=== PATIENT | female | born 1970 | race Caucasian/White ===

== ENCOUNTER 2024-04-27 19:34 | Emergency (ER) | payer BC ==
[2024-04-27] MEDS ORDERED: ONDANSETRON 4 MG/2 ML VIAL ONE (20:15)
[2024-04-27] MEDS ORDERED: MORPHINE 4 MG/ML SYR ONE (20:16)
--- NOTE | 2024-04-27 21:38 | RAD REPORT ---
EXAMINATION: XR Hip Right 2 View CLINICAL INDICATION: Female, 54 years old. [facility] MAIN PAIN Bed Name: 18 TECHNIQUE: 2 view radiograph of the right hip were obtained. COMPARISON: No prior exam. FINDINGS: Mildly displaced fracture along the base of the right femoral neck or intertrochanteric juan e. Displaced fracture component involving the base of the lesser trochanter. No displacement. Normal alignment. No evidence of arthropathy or other focal bone lesion. Soft tissues are unremarkabl e. IMPRESSION: Right femoral neck fracture as above.
--- NOTE | 2024-04-27 21:39 | RAD REPORT ---
EXAM: XR Wrist Right 3 View HISTORY: [facility] MAIN PAIN Bed Name: 18 COMPARISON: None TECHNIQUE: 3 views of the left wrist. FINDINGS: No evidence of acute fracture or dislocation. Joint alignment is maintained. No soft tissue swelling is seen. Mild degenerative changes at the thumb base. IMPRESSION: No evidence of acute osseous abnormality.
--- NOTE | 2024-04-27 22:53 | EDPHYS ---
Physician Documentation [facility] Name: Noa Hernandez Age: 54 yrs Sex: Female : 1970 Arrival Date: 04/27/2024 Time: 19:34 Bed 18 Private MD: ED Physician Gonzalo Harmon HPI: 04/27 22:54 This 54 yrs old Female presents to ER via EMS with complaints of Hip Injury, Wrist rt Injury. 22:54 Patient presents to the ED with mechanical fall. The patient was sitting on a rolling rt chair when it fell out from under her causing her to land on her right side. She denies head trauma. States that she has swelling to the right wrist and pain to the right hip. She denies other acute complaints at this time, symptoms are moderate in severity, aching nature, nonradiating, no other aggravating alleviating factors.. 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 - Infectious Disease History:: Denies. - Social history:: Smoking status: Patient denies any tobacco usage or history of. - Family history:: not pertinent. ROS: 22:54 Constitutional: Negative for fever, chills, and weight loss, Cardiovascular: Negative rt for chest pain, palpitations, and edema, Respiratory: Negative for shortness of breath, cough, wheezing, and pleuritic chest pain, Abdomen/GI: Negative for abdominal pain, nausea, vomiting, diarrhea, and constipation, Skin: Negative for injury, rash, and discoloration, Neuro: Negative for headache, weakness, numbness, tingling, and seizure, 22:54 MS/extremity: Positive for injury or acute deformity, pain, Exam: 22:54 Constitutional: This is a well developed, well nourished patient who is awake, alert, rt and in no acute distress. Head/Face: Normocephalic, atraumatic. Chest/axilla: Normal chest wall appearance and motion. Nontender with no deformity. No lesions are appreciated. Cardiovascular: Regular rate and rhythm with a normal S1 and S2. No gallops, murmurs, or rubs. Normal PMI, no JVD. No pulse deficits. Respiratory: Lungs have equal breath sounds bilaterally, clear to auscultation and percussion. No rales, rhonchi or wheezes noted. No increased work of breathing, no retractions or nasal flaring. Abdomen/GI: Soft, non-tender, with normal bowel sounds. No distension or tympany. No guarding or rebound. No evidence of tenderness throughout. Skin: Warm, dry with normal turgor. Normal color with no rashes, no lesions, and no evidence of cellulitis. 22:54 Musculoskeletal/extremity: Minimal tenderness to the right wrist, swelling noted, full range of motion, pulses, motor, sensation intact with tenderness to the right hip, no other focal areas of tenderness on the right lower extremity, pulses, motor, sensation are intact. 23:03 ECG was reviewed by the Attending Physician. rt Vital Signs: 19:05 BP 142 / 88; Pulse 89; Resp 18; Temp 98(O); Pulse Ox 99% on R/A; rg5 19:37 BP 142 / 88; Pulse 81; Resp 16; Temp 97.9(O); Pulse Ox 100% on R/A; Weight 109.77 kg; iw Height 5 ft. 4 in. ; Pain 8/10; 20:30 BP 106 / 65; Pulse 89; Resp 17; Pulse Ox 99% on R/A; rg5 21:30 BP 99 / 62; Pulse 91; Resp 17; Pulse Ox 100% ; rg5 22:25 BP 107 / 88; Pulse 89; Resp 96; Temp 98(O); Pulse Ox 99% on R/A; rg5 23:32 BP 99 / 64; Pulse 97; Resp 17; Pulse Ox 99% on R/A; rg5 04/28 00:30 BP 109 / 70; Pulse 95; Resp 17; Temp 98(O); Pulse Ox 97% on R/A; Pain 5/10; rg5 04/27 19:37 Body Mass Index 41.54 (109.77 kg, 162.56 cm) iw 19:37 Pain Scale: Adult iw 04/28 00:30 Pain Scale: Adult rg5 Tyshawn Coma Score: 04/27 19:35 Eye Response: spontaneous(4). Motor Response: obeys commands(6). Verbal Response: rg5 oriented(5). Total: 15. MDM: 19:36 Medical Screening Exam initiated rt 22:54 Differential diagnosis: hip fracture, intertrochanteric fracture, femoral neck rt fracture. Data reviewed: vital signs, nurses notes, radiologic studies. Consideration of Admission/Observation Escalation of care including admission/observation considered. Patient requires transfer due to lack of orthopedic services on-call. Patient's physicians are at [facility], she request transfer to [facility].. I considered the following discharge prescriptions or medication management in the emergency department Medications were administered in the Emergency Department. See MAR. Independent interpretation of the following test(s) in the Emergency Department X-Ray: My interpretation is Femoral neck fracture syndrome interpretation of x-ray images. Test considered but Not performed: CT: No head trauma, CT scan of the head not decayed indicated. Care significantly affected by the following chronic conditions: Rheumatoid arthritis. Counseling: I had a detailed discussion with the patient and/or guardian regarding the historical points, exam findings, and any diagnostic results supporting the discharge/admit diagnosis, radiology results, the need to transfer to another facility. Response to treatment: There is no appreciated change of the patient's symptoms at this time. 04/27 22:30 Order name: CBC with Diff rt 04/27 22:30 Order name: CMP; Complete Time: 23:23 rt 04/28 00:56 Order name: CBC Smear Scan EDMS 04/27 19:42 Order name: Wrist Right 3 View XRAY; Complete Time: 21:47 rt 04/27 19:42 Order name: Hip Right 2 View XRAY; Complete Time: 21:47 rt 04/27 22:31 Order name: EKG; Complete Time: 22:31 rt 04/27 22:31 Order name: EKG - Nurse/Tech; Complete Time: 22:58 rt EC:03 Rate is 94 beats/min. Rhythm is regular, Normal Sinus Rhythm with No ectopy. QRS [place] rt is Normal. DE interval is normal. QRS interval is normal. QT interval is normal. No Q waves. No ST changes noted. Interpreted by me. Administered Medications: 20:17 Drug: morphine IVP or IV 4 mg IVP once over 4 mins Route: IVP; Infused Over: 4 mins; rg5 Site: left hand; 22:27 Follow up: Response: No adverse reaction; Pain is decreased rg5 20:17 Drug: Ondansetron IVP 4 mg IVP once; over 2 minutes Route: IVP; Site: left hand; rg5 22:27 Follow up: Response: No adverse reaction rg5 04/28 00:48 Drug: morphine IVP or IV 4 mg IVP once over 4 mins Route: IVP; Infused Over: 4 mins; rg5 Site: left hand; 00:55 Follow up: Response: No adverse reaction rg5 Disposition Summary: 04/27/24 22:52 Transfer Ordered Notes: Transfer Location: [facility] rt Reason: Specialty rt Condition: Stable rt Problem: new rt Symptoms: are unchanged rt Accepting Physician: (04/28/24 00:59) rg5 Diagnosis - Mechanical fall rt - Right femoral neck fracture rt Forms: - Medication Reconciliation Form rt - SBAR form rt Signatures: Dispatcher [employer] Bisi Land, CHRISTOPHE SAEED iw Gonzalo Harmon MD MD rt Arcenio Bone RN RN rg5 Corrections: (The following items were deleted from the chart) 00:59 04/27 22:52 rt rg5
--- NOTE | 2024-04-27 22:53 | ER ---
Nurse's Notes [facility] Name: Noa Hernandez Age: 54 yrs Sex: Female : 1970 Arrival Date: 04/27/2024 Time: 19:34 Bed 18 Private MD: Diagnosis: Mechanical fall;Right femoral neck fracture Presentation: 04/27 19:37 Chief complaint: EMS states: fell off rolling chair, fell onto right side, c/o right iw hip pain and swelling, pain and swelling to right wrist. Coronavirus screen: At this time, the client does not indicate any symptoms associated with coronavirus-19. Ebola Screen: No symptoms or risks identified at this time. Initial Sepsis Screen: Does the patient meet any 2 criteria? No. Patient's initial sepsis screen is negative. Does the patient have a suspected source of infection? No. Patient's initial sepsis screen is negative. Risk Assessment: Do you want to hurt yourself or someone else? Patient reports no desire to harm self or others. Onset of symptoms was April 27, 2024. Care prior to arrival: Medication(s) given: zofran 4 mg, ketamine 22 mg IVP IV initiated. 22 GA, in the left hand. 19:37 Method Of Arrival: EMS: [facility] iw 19:37 Acuity: OTILIO 3 iw Triage Assessment: 19:40 General: Appears uncomfortable, Behavior is calm, cooperative. Pain:. 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 - Infectious Disease History:: Denies. - Social history:: Smoking status: Patient denies any tobacco usage or history of. - Family history:: not pertinent. Screenin:35 [facility] ED Fall Risk Assessment (Adult) History of falling in the last 3 months, rg5 including since admission No falls in past 3 months (0 pts) Confusion or Disorientation No (0 pts) Intoxicated or Sedated No (0 pts) Impaired Gait Yes (1 pt) Mobility Assist Device Used Yes (1 pt) Altered Elimination No (0 pt) Score/Fall Risk Level 0 - 2 = Low Risk Oriented to surroundings, Maintained a safe environment, Hourly rounding (assess needs \T\ fall precautionary measures) done. Abuse screen: Denies threats or abuse. Nutritional screening: No deficits noted. Tuberculosis screening: No symptoms or risk factors identified. Assessment: 19:35 General: Appears in no apparent distress. Behavior is calm, cooperative, appropriate rg5 for age. 19:35 Pain: Complains of pain in right hip \T\ knee Pain currently is 8 out of 10 on a pain rg5 scale. Quality of pain is described as aching, Pain began 2 hours ago. Neuro: Level of Consciousness is awake, alert, obeys commands, Oriented to person, place, time, situation. Cardiovascular: Denies chest pain, Patient's skin is warm and dry. Rhythm is regular. Respiratory: Airway is patent Trachea midline Respiratory effort is even, unlabored, Respiratory pattern is regular, symmetrical. GI: Abdomen is round obese, Abd is soft and non tender. : No signs and/or symptoms were reported regarding the genitourinary system. EENT: No deficits noted. Derm: Skin is intact, Skin is dry, Skin is normal, Skin temperature is warm. Musculoskeletal: Circulation, motion, and sensation intact. Range of motion: intact in right knee. 20:00 Reassessment: No changes from previously documented assessment. Patient and/or family rg5 updated on plan of care and expected duration. Pain level reassessed. 21:00 Reassessment: No changes from previously documented assessment. Patient and/or family rg5 updated on plan of care and expected duration. Pain level reassessed. 22:00 Reassessment: Patient and/or family updated on plan of care and expected duration. Pain rg5 level reassessed. Patient is alert, oriented x 3, equal unlabored respirations, skin warm/dry/pink. 23:39 Reassessment: No changes from previously documented assessment. Patient and/or family rg5 updated on plan of care and expected duration. Pain level reassessed. Patient is alert, oriented x 3, equal unlabored respirations, skin warm/dry/pink. 04/28 00:30 Reassessment: No changes from previously documented assessment. Patient and/or family rg5 updated on plan of care and expected duration. Pain level reassessed. Vital Signs: 04/27 19:05 BP 142 / 88; Pulse 89; Resp 18; Temp 98(O); Pulse Ox 99% on R/A; rg5 19:37 BP 142 / 88; Pulse 81; Resp 16; Temp 97.9(O); Pulse Ox 100% on R/A; Weight 109.77 kg; iw Height 5 ft. 4 in. ; Pain 8/10; 20:30 BP 106 / 65; Pulse 89; Resp 17; Pulse Ox 99% on R/A; rg5 21:30 BP 99 / 62; Pulse 91; Resp 17; Pulse Ox 100% ; rg5 22:25 BP 107 / 88; Pulse 89; Resp 96; Temp 98(O); Pulse Ox 99% on R/A; rg5 23:32 BP 99 / 64; Pulse 97; Resp 17; Pulse Ox 99% on R/A; rg5 04/28 00:30 BP 109 / 70; Pulse 95; Resp 17; Temp 98(O); Pulse Ox 97% on R/A; Pain 5/10; rg5 04/27 19:37 Body Mass Index 41.54 (109.77 kg, 162.56 cm) iw 19:37 Pain Scale: Adult iw 04/28 00:30 Pain Scale: Adult rg5 Tyshawn Coma Score: 04/27 19:35 Eye Response: spontaneous(4). Motor Response: obeys commands(6). Verbal Response: rg5 oriented(5). Total: 15. ED Course: 19:35 Patient arrived in ED. rv1 19:35 Patient has correct armband on for positive identification. Placed in gown. Bed in low rg5 position. Call light in reach. Side rails up X2. Adult w/ patient. Door closed. Noise minimized. Warm blanket given. Cleaned of incontinence. 19:35 No provider procedures requiring assistance completed. Maintain EMS IV. Gauge \T\ site: rg5 22 gauge left hand. Flushed with 10 mL NS IV is patent, is intact. 19:36 Gonzalo Harmon MD is Attending Physician. rt 19:39 Triage completed. iw 19:39 Arm band placed on. iw 19:48 Arcenio Bone, CHRISTOPHE is Primary Nurse. rg5 20:35 Wrist Right 3 View XRAY In Process Unspecified. EDMS 20:35 Hip Right 2 View XRAY In Process Unspecified. EDMS 22:02 Initiated transfer with Roxann at [facility]. rv1 22:25 Doc to Doc with hospitalist. rv1 22:58 EKG done, by auto technician. af3 23:59 Pt accepted to [facility] by Delio Mckinney to 1903. Report # [id number]. rv1 04/28 00:58 Provided Education on: post er care. rg5 00:58 Patient transferred, IV remains in place. intact, bleeding controlled, No rg5 redness/swelling at site. Administered Medications: 04/27 20:17 Drug: morphine IVP or IV 4 mg IVP once over 4 mins Route: IVP; Infused Over: 4 mins; rg5 Site: left hand; 22:27 Follow up: Response: No adverse reaction; Pain is decreased rg5 20:17 Drug: Ondansetron IVP 4 mg IVP once; over 2 minutes Route: IVP; Site: left hand; rg5 22:27 Follow up: Response: No adverse reaction rg5 04/28 00:48 Drug: morphine IVP or IV 4 mg IVP once over 4 mins Route: IVP; Infused Over: 4 mins; rg5 Site: left hand; 00:55 Follow up: Response: No adverse reaction rg5 Medication: 04/27 19:35 VIS not applicable for this client. rg5 Outcome: 22:52 ER care complete, transfer ordered by . rt 04/28 00:58 Transferred by ground EMS to [facility], rg5 Condition: stable Discharge instructions given to EMS, 00:59 Patient left the ED. rg5 Signatures: Dispatcher [employer] EDBisi Oliveira RN RN iw [place], Ryan, MD MD rt Katina Ivey rv1 Arcenio Bone RN RN [facility] Temi Oakley af3
[2024-04-27 23:09] LABS: Absolute Lymphocytes (CBC) 0.8 K/uL (0.7-4.9); Absolute Monocytes 0.6 K/uL (0.1-1.3); Absolute Neutrophil 10.4 K/uL (1.8-8.0); Basophils % 0.3 % (0-1.3); Eosinophils % 0.3 % (0-4.4); Hematocrit 31.5 % (36.0-45.0); Hemoglobin 10.8 g/dL (12.0-15.0); Lymphocytes % 6.6 % (15.3-44.8); MCH 31.8 pg (27.0-35.0); MCHC 34.4 g/dL (32.0-36.0); MCV 92.4 fL (80-100); MPV 7.6 fL (7.6-11.3); Monocytes % 5.1 % (3.3-12.3); Neutrophils % 87.7 % (41.7-73.7); Platelets 277 thou/uL (152-406); RBC Red Blood Cell Count 3.41 M/uL (3.86-4.86); Red Cell Distribution Width 14.9 % (12.1-15.2)
[2024-04-27 23:22] LABS: Albumin 3.1 g/dL (3.4-5.0); Albumin/Globulin Ratio 0.7 (1.1-1.8); Anion Gap 10.1 mEq/L (5.0-15.0); Bilirubin Total 0.7 mg/dL (0.2-1.0); Globulin 4.4 g/dL (2.3-3.5); Potassium 3.1 mEq/L (3.5-5.1); Protein, Total 7.5 g/dL (6.4-8.2)
[2024-04-28] MEDS ORDERED: MORPHINE 4 MG/ML SYR ONE (00:48)
[2024-04-28 00:55] LABS: Platelet Estimate ADEQ; White Blood Cell Scan OK (OK)
[2024-04-28 00:56] LABS: Blood Morphology Comment NOT SEEN (NOT SEEN)
[2024-04-28 02:01] VITALS: TEMP 98
[2024-04-28 02:03] VITALS: BP 109/70; O2SAT 97
--- NOTE | 2024-04-29 12:00 | EKG ---
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
== END 2024-04-28 00:59 | disposition short-term general hospital (02) ==
LOC: ER 19:34
DX: S72.001A Fracture of unspecified part of neck of right femur, initial encounter for closed fracture (principal); W07.XXXA Fall from chair, initial encounter
CPT/HCPCS: 93005; 85025; 36415; 80053; 73502; 73110; 96375; 96374; 99285; J2405